=== PATIENT | female | born 1950 | race Caucasian/White ===

== ENCOUNTER 2021-02-06 11:25 | Day surgery (SDC) | payer MEDICARE, BC ==
[2021-02-01 13:15] LABS: BASOPHILS # (AUTO) 0.1 X10'3 (0-0.2); BASOPHILS % (AUTO) 1.3 % (0-1); EOSINOPHILS # (AUTO) 0.2 X10'3 (0-0.9); HEMATOCRIT 31.8 % (35.0-45.0); HEMOGLOBIN 10.4 g/dl (12.0-16.0); LYMPHOCYTES # (AUTO) 1.7 X10'3 (1.1-4.8); LYMPHOCYTES % (AUTO) 32.1 % (21-51); MEAN CORPUSCULAR HEMOGLOBIN 27.8 PG (27.0-31.0); MEAN CORPUSCULAR HGB CONC 32.6 g/dL (33.0-36.5); MEAN CORPUSCULAR VOLUME 85.3 FL (78-98); MEAN PLATELET VOLUME 9.1 FL (7.4-10.4); MONOCYTES # (AUTO) 0.6 X10'3 (0-0.9); MONOCYTES % (AUTO) 10.6 % (2-12); NEUTROPHILS # (AUTO) 2.8 X10'3 (1.8-7.7); PLATELET COUNT 247 X10'3 (140-440); RED BLOOD COUNT 3.73 X10'6 (4.20-5.60); RED CELL DISTRIBUTION WIDTH 15.5 % (11.5-14.5); WHITE BLOOD COUNT 5.3 X10'3 (4.5-11.0)
[2021-02-01 13:20] LABS: ALBUMIN 3.6 G/DL (3.4-5.0); ANION GAP 8 (8-16); BLOOD UREA NITROGEN 29 MG/DL (7-18); BUN/CREATININE RATIO 17.7 (6.6-38.0); CHLORIDE 103 MMOL/L (99-107); CREATININE 1.64 MG/DL (0.40-0.90); GLUCOSE 121 MG/DL (70-104); POTASSIUM 4.5 MMOL/L (3.5-5.1); SODIUM 139 MMOL/L (135-145); TOTAL CARBON DIOXIDE 27.7 MMOL/L (24-32); eGFR 31 ML/MIN
[2021-02-01 13:22] LABS: APTT 27 SECONDS (22-32)
[~2021-02-06] VITALS: Ht 162.6 cm; Wt 106.6 kg
[2021-02-06] VITALS (7 sets, daily range): BP systolic 107–121; BP diastolic 45–54
[~2021-02-06 11:25] MED LIST: ACET-896 PO; AMIO200T61 PO; ANAS1TAB10 PO; APIX5TAB3 PO; FURO-150 PO; GERITOL PO; LANS30CA56 PO; LEVO150T73 PO; LISI2.5T49 PO; MAGN300C PO; METF-1203 PO; METO50TA17 PO; MULT-342 PO; SIMV-42 PO; vitamin B12 PO
[2021-02-06] MEDS ORDERED: diphenhydrAMINE 25mg capsule PO PRN (11:45)
[2021-02-06] MEDS ORDERED: normal saline 1,000 ML IV SCH (11:45)
[2021-02-06] MEDS ORDERED: LORazepam 0.5 MG tablet PO PRN (11:45)
[2021-02-06] MEDS ORDERED: AMIO200T39 PO (12:06)
[2021-02-06] MEDS ORDERED: SACU1TAB PO (12:06)
[2021-02-06] MEDS ORDERED: LEVO100T PO (12:06)
[2021-02-06] MEDS ORDERED: ATOR20TA PO (12:07)
[2021-02-06] MEDS ORDERED: iron (12:08)
[2021-02-06] MEDS ORDERED: vitamin d3 (12:09)
[2021-02-06] MEDS ORDERED: RIVA15TA PO (12:10)
[2021-02-06] MEDS ORDERED: midazolam 1 mg/ML 2ml injection ONE (12:12)
[2021-02-06] MEDS ORDERED: nitroGLYCERIN-Tridil 50MG/D5W 250 ML IV ONE (12:12)
[2021-02-06] MEDS ORDERED: verapamil 2.5 mg/ml inj IV ONE (12:12)
[2021-02-06] MEDS ORDERED: POTA2TAB17 (12:13)
[2021-02-06] MEDS ORDERED: heparin 1,000unit/ml 10ml vial 10 ML ONE (12:13)
[2021-02-06] MEDS ORDERED: fentaNYL/PF 50MCG/1 ML 2ML syringe ONE (12:13)
[2021-02-06] MEDS ORDERED: iohexol 350MG/ML 100ml bottle IV ONE (12:13)
[2021-02-06] MEDS ORDERED: LIDOcaine 1% (10mg/ml)w/preservative injection 20ml MDV ONE (12:14)
[2021-02-06] MEDS ORDERED: ondansetron/PF 4mg/2ml inj IV PRN (13:45)
[2021-02-06] MEDS ORDERED: OXAZEpam 15mg capsule PO PRN (13:45)
[2021-02-06] MEDS ORDERED: proCHLORperazine 10 MG/2 ml inj IV PRN (13:45)
== END 2021-02-06 16:00 | disposition home or self-care (01) ==
LOC: SSTAY O 11:25
PROVIDERS: ATTEND Internal Medicine Interventional Cardiology
DX: I25.10 Atherosclerotic heart disease of native coronary artery without angina pectoris (principal); I42.9 Cardiomyopathy, unspecified; G47.33 Obstructive sleep apnea (adult) (pediatric); E11.22 Type 2 diabetes mellitus with diabetic chronic kidney disease; I13.0 Hypertensive heart and chronic kidney disease with heart failure and stage 1 through stage 4 chronic kidney disease, or unspecified chronic kidney disease; N18.9 Chronic kidney disease, unspecified; I50.9 Heart failure, unspecified; I48.0 Paroxysmal atrial fibrillation; I27.20 Pulmonary hypertension, unspecified; E03.9 Hypothyroidism, unspecified; D64.9 Anemia, unspecified; G25.0 Essential tremor; E78.5 Hyperlipidemia, unspecified; Z88.8 Allergy status to other drugs, medicaments and biological substances; Z85.3 Personal history of malignant neoplasm of breast; Z87.891 Personal history of nicotine dependence
CPT/HCPCS: 36415; 80048; 85025; 85610; 85730; 93005; 93458; 99152; C1769; C1894; J1644; J2250; J3010; J3490; J7030; Q9967; A4620; A5120

== ENCOUNTER 2021-09-29 21:43 | Emergency (ER) | payer MEDICARE, BC ==
[~2021-09-29] VITALS: Ht 162.6 cm; Wt 103.2 kg
[~2021-09-29 21:43] MED LIST changes: +AMIO200T39 PO; -AMIO200T61 PO; -ANAS1TAB10 PO; -APIX5TAB3 PO; +ATOR20TA PO; -GERITOL PO; +LEVO100T PO; -LEVO150T73 PO; -LISI2.5T49 PO; -METF-1203 PO; -MULT-342 PO; +POTA2TAB17; +RIVA15TA PO; +SACU1TAB PO; -SIMV-42 PO; +iron; +vitamin d3
[2021-09-29] MEDS ORDERED: morphine 4 MG/ML inj SYRINge IV ONE (22:30)
--- NOTE | 2021-09-29 22:30 | NUR ---
ASSUMED CARE OF PT. AWAKE AND ALERT. TACHYPNIC. C/O PAIN 12/03. WILL NOTIFIED
[2021-09-29 22:40] LABS: BASOPHILS # (AUTO) 0.1 X10'3 (0-0.2); BASOPHILS % (AUTO) 0.6 % (0-1); EOSINOPHILS # (AUTO) 0.3 X10'3 (0-0.9); EOSINOPHILS % (AUTO) 3.1 % (0-6); HEMATOCRIT 23.3 % (35.0-45.0); HEMOGLOBIN 7.5 g/dl (12.0-16.0); LYMPHOCYTES # (AUTO) 1.6 X10'3 (1.1-4.8); LYMPHOCYTES % (AUTO) 19.4 % (21-51); MEAN CORPUSCULAR VOLUME 84.2 FL (78-98); MEAN PLATELET VOLUME 9.1 FL (7.4-10.4); MONOCYTES # (AUTO) 1.1 X10'3 (0-0.9); MONOCYTES % (AUTO) 13.2 % (2-12); NEUTROPHILS # (AUTO) 5.2 X10'3 (1.8-7.7); NEUTROPHILS % (AUTO) 63.7 % (42-75); PLATELET COUNT 225 X10'3 (140-440); RED BLOOD COUNT 2.77 X10'6 (4.20-5.60); RED CELL DISTRIBUTION WIDTH 15.3 % (11.5-14.5); WHITE BLOOD COUNT 8.2 X10'3 (4.5-11.0)
[2021-09-29 22:50] LABS: ALANINE AMINOTRANSFERASE 12 U/L (12-78); ALBUMIN/GLOBULIN RATIO 0.7 (1.1-1.5); ALKALINE PHOSPHATASE 101 IU/L (46-116); ANION GAP 10 (8-16); BILIRUBIN,TOTAL 0.3 MG/DL (0.1-1.0); BLOOD UREA NITROGEN 49 MG/DL (7-18); BUN/CREATININE RATIO 24.1 (6.6-38.0); CALCIUM 8.7 MG/DL (8.5-10.1); CHLORIDE 106 MMOL/L (99-107); CREATININE 2.03 MG/DL (0.40-0.90); GLUCOSE 107 MG/DL (70-104); SODIUM 139 MMOL/L (135-145); TOTAL CARBON DIOXIDE 23.4 MMOL/L (24-32); TOTAL PROTEIN 7.2 G/DL (6.4-8.2); eGFR 24 ML/MIN
[2021-09-29 22:52] LABS: ASPARTATE AMINO TRANSFERASE 42 U/L (10-37); POTASSIUM 4.8 MMOL/L (3.5-5.1)
[2021-09-29] MEDS ORDERED: morphine 4 MG/ML inj SYRINge IM ONE (23:30)
--- NOTE | 2021-09-30 00:20 | NUR ---
ABBOT TECH AT BEDSIDE INERREGATING PACEMAKER.
[2021-09-30 01:36] VITALS: BP 143/77
== END 2021-09-30 01:38 | disposition home or self-care (01) ==
LOC: ER 21:44
DX: T82.847A Pain due to cardiac prosthetic devices, implants and grafts, initial encounter (principal); I97.190 Other postprocedural cardiac functional disturbances following cardiac surgery; R07.89 Other chest pain; Z87.891 Personal history of nicotine dependence; Z79.899 Other long term (current) drug therapy; Z88.8 Allergy status to other drugs, medicaments and biological substances; Y84.8 Other medical procedures as the cause of abnormal reaction of the patient, or of later complication, without mention of misadventure at the time of the procedure; Y71.3 Surgical instruments, materials and cardiovascular devices (including sutures) associated with adverse incidents; Y92.89 Other specified places as the place of occurrence of the external cause
CPT/HCPCS: 36415; 71045; 80053; 83880; 84484; 85025; 93005; 96372; 96374; 99285; J2270; 96375; A4615

== ENCOUNTER 2021-10-05 09:59 | Inpatient (IN) | payer MEDICARE, BC ==
[2021-10-05] VITALS (11 sets, daily range): BP systolic 101–147; BP diastolic 47–75
[~2021-10-05] VITALS: Ht 162.6 cm; Wt 100.7 kg
[2021-10-05] MEDS ORDERED: ceFAZolin inj. 2,000 MG in dextrose 5%-water 100 ML IV ONE (10:30)
[2021-10-05] MEDS ORDERED: PANT40TA54 PO (11:01)
[2021-10-05] MEDS ORDERED: LEVO112T5 PO (11:02)
[2021-10-05 11:20] LABS: BASOPHILS # (AUTO) 0.1 X10'3 (0-0.2); BASOPHILS % (AUTO) 1.4 % (0-1); EOSINOPHILS # (AUTO) 0.1 X10'3 (0-0.9); EOSINOPHILS % (AUTO) 2.2 % (0-6); HEMATOCRIT 23.4 % (35.0-45.0); HEMOGLOBIN 7.5 g/dl (12.0-16.0); LYMPHOCYTES # (AUTO) 1.5 X10'3 (1.1-4.8); LYMPHOCYTES % (AUTO) 28.7 % (21-51); MEAN CORPUSCULAR HEMOGLOBIN 26.1 PG (27.0-31.0); MEAN CORPUSCULAR HGB CONC 31.8 g/dL (33.0-36.5); MEAN CORPUSCULAR VOLUME 82.1 FL (78-98); MEAN PLATELET VOLUME 7.5 FL (7.4-10.4); MONOCYTES # (AUTO) 0.6 X10'3 (0-0.9); MONOCYTES % (AUTO) 11.6 % (2-12); NEUTROPHILS # (AUTO) 2.9 X10'3 (1.8-7.7); NEUTROPHILS % (AUTO) 56.1 % (42-75); PLATELET COUNT 322 X10'3 (140-440); RED BLOOD COUNT 2.85 X10'6 (4.20-5.60); RED CELL DISTRIBUTION WIDTH 14.4 % (11.5-14.5); WHITE BLOOD COUNT 5.1 X10'3 (4.5-11.0)
[2021-10-05 11:27] LABS: ALBUMIN 3.3 G/DL (3.4-5.0); ANION GAP 10 (8-16); BLOOD UREA NITROGEN 26 MG/DL (7-18); BUN/CREATININE RATIO 15.3 (6.6-38.0); CALCIUM 8.9 MG/DL (8.5-10.1); CHLORIDE 108 MMOL/L (99-107); GLUCOSE 94 MG/DL (70-104); MAGNESIUM 2.2 MG/DL (1.5-2.4); SODIUM 143 MMOL/L (135-145); TOTAL CARBON DIOXIDE 24.8 MMOL/L (24-32); eGFR 30 ML/MIN
[2021-10-05] MEDS ORDERED: CEPHALEXIN PO (11:56)
[2021-10-05] MEDS ORDERED: METO-411 PO (11:56)
[2021-10-05] MEDS ORDERED: MAGN200T PO (11:57)
[2021-10-05] MEDS ORDERED: HYDROcodone/acetaminophen 10/325mg tab PO ONE (12:25)
[2021-10-05] MEDS ORDERED: LIDOcaine 1% W/epiNEPHrine 1:100,000 20ml vial ONE (15:54)
[2021-10-05] MEDS ORDERED: midazolam 1 mg/ML 2ml injection ONE (15:54)
[2021-10-05] MEDS ORDERED: fentaNYL/PF 50MCG/1 ML 2ML syringe ONE (15:54)
[2021-10-05] MEDS ORDERED: ceFAZolin 1000mg inj ONE (15:54)
--- NOTE | 2021-10-05 16:20 | NUR ---
pts took pts glasses, cell phone and purse, all other belongings in bag under gurney.
--- NOTE | 2021-10-05 17:45 | NUR ---
In person report given to DMITRI Morales
--- NOTE | 2021-10-05 18:02 | NUR ---
Patient arrived to PCU 10 minutes before shift change. Patient alert, oriented and vitals are stable. Pacer site is [facility].
--- NOTE | 2021-10-05 18:38 | NUR ---
Problems reprioritized. Patient report given, questions answered & plan of care reviewed with Neisha RIZVI .
[2021-10-05] MEDS ORDERED: HYDROcodone/acetaminophen 5mg/325mg tablet PO PRN (18:45)
[2021-10-05] MEDS ORDERED: LORazepam 1 MG tablet PO PRN (18:45)
[2021-10-05] MEDS ORDERED: AMIO100T4 PO (19:09)
[2021-10-05] MEDS ORDERED: RIVA15TA PO (19:11)
[2021-10-05] MEDS ORDERED: CEPH500C2 PO (19:12)
[2021-10-05] MEDS ORDERED: acetaminophen 325mg tablet PO PRN (19:15)
[2021-10-05] MEDS: cephalexin 500mg capsule PO SCH (20:23)
[2021-10-05] MEDS: normal saline 1000ml 1,000 ML IV SCH (20:24)
[2021-10-05] MEDS ORDERED: atorvastatin 20mg tablet PO SCH (21:00)
[2021-10-05] MEDS: ceFAZolin/D5W- 1GM premix 50 ML IV SCH (23:54)
[2021-10-06] MEDS: HYDROcodone/acetaminophen 10/325mg tab PO PRN ×4 (01:42→15:43)
[2021-10-06 02:00] VITALS: BP 126/66
[2021-10-06] MEDS: normal saline 1000ml 1,000 ML IV SCH ×2 (04:45→14:45)
[2021-10-06 06:00] VITALS: BP 125/51
--- NOTE | 2021-10-06 06:58 | NUR ---
Report given to this RN at 1800 by Carmen. Post op vitals set up with off going RN. Pt had mostly uneventful shift. Pt did get several doses of Ellis. Dressing remains intact and left arm in sling. Fluids TKO now. Report given to Magui this am. Pt in no acute distress at time of handoff.
[2021-10-06] MEDS ORDERED: rivaroxaban 15mg tablet PO SCH (08:00)
[2021-10-06] MEDS ORDERED: amiodarone 100mg tablet PO SCH (08:00)
[2021-10-06] MEDS ORDERED: furosemide 40mg tablet PO SCH (08:00)
[2021-10-06] MEDS ORDERED: levoTHYROXINE 112mcg tablet PO SCH (08:00)
[2021-10-06] MEDS ORDERED: metoprolol succinate 25mg (24-HOUR) SR. Tablet PO SCH (08:00)
[2021-10-06] MEDS ORDERED: pantoprazole 40mg Tablet.DR PO SCH (08:00)
[2021-10-06] MEDS: ceFAZolin/D5W- 1GM premix 50 ML IV SCH (08:13)
[2021-10-06] MEDS: cephalexin 500mg capsule PO SCH (08:13)
--- NOTE | 2021-10-06 08:20 | NUR ---
Pt's IV infiltrated moments into dose of ABX, infusion stopped. Pt refuses new IV start despite being informed of reason for antibiotics still declined. IV dc'd intact.
[2021-10-06 11:00] VITALS: BP 115/73
--- NOTE | 2021-10-06 16:02 | NUR ---
spoke with Dr Bj Freeman about pt desire to DC. Was give DC order but pt requesting Jesse 10 for DC. Called service for page out.
[2021-10-06] MEDS ORDERED: magnesium oxide 400mg tablet PO SCH (21:00)
--- NOTE | 2021-10-09 13:57 | NUR ---
Case Management DC follow up: Left VM with name , telephone number, and reason for call.
== END 2021-10-06 17:50 | disposition home or self-care (01) | DRG 261 ==
LOC: SSTAY O 09:59 → PCU 3S 17:57
PROVIDERS: ADMIT Internal Medicine Interventional Cardiology; ATTEND Internal Medicine Interventional Cardiology
PROC: 02WA3MZ Revision of Cardiac Lead in Heart, Percutaneous Approach (ICD-10-PCS; principal; 2021-10-05)
DX: T82.120A Displacement of cardiac electrode, initial encounter (principal); I13.0 Hypertensive heart and chronic kidney disease with heart failure and stage 1 through stage 4 chronic kidney disease, or unspecified chronic kidney disease; I48.91 Unspecified atrial fibrillation; I50.9 Heart failure, unspecified; G47.33 Obstructive sleep apnea (adult) (pediatric); Y83.8 Other surgical procedures as the cause of abnormal reaction of the patient, or of later complication, without mention of misadventure at the time of the procedure; E11.22 Type 2 diabetes mellitus with diabetic chronic kidney disease; N18.9 Chronic kidney disease, unspecified; I25.10 Atherosclerotic heart disease of native coronary artery without angina pectoris; Y92.89 Other specified places as the place of occurrence of the external cause
CPT/HCPCS: 33215; 36415; 71045; 80048; 83735; 85025; 85610; 93005; 93308; 99152; 99153; A4565; A6258; A6449; G0378; J0690; J2250; J3010; J3490; J7030

== ENCOUNTER → 2022-03-28 | Outpatient (CLI) | payer MEDICARE, BC ==
[~2022-03-28] MED LIST changes: +AMIO100T4 PO; -AMIO200T39 PO; +CEPH500C2 PO; -LANS30CA56 PO; -LEVO100T PO; +LEVO112T5 PO; +MAGN200T PO; -MAGN300C PO; +METO-411 PO; -METO50TA17 PO; +PANT40TA54 PO; -POTA2TAB17; -SACU1TAB PO; +iohexol 350MG/ML 100ml bottle IV ONE; -iron; -vitamin B12 PO; -vitamin d3
[2022-03-28 10:13] LABS: BASOPHILS # (AUTO) 0.1 X10'3 (0-0.2); BASOPHILS % (AUTO) 1.8 % (0-1); EOSINOPHILS # (AUTO) 0.2 X10'3 (0-0.9); EOSINOPHILS % (AUTO) 2.9 % (0-6); HEMATOCRIT 33.1 % (35.0-45.0); HEMOGLOBIN 10.4 g/dl (12.0-16.0); LYMPHOCYTES # (AUTO) 1.4 X10'3 (1.1-4.8); LYMPHOCYTES % (AUTO) 23.2 % (21-51); MEAN CORPUSCULAR HEMOGLOBIN 25.4 PG (27.0-31.0); MEAN CORPUSCULAR HGB CONC 31.3 g/dL (33.0-36.5); MEAN CORPUSCULAR VOLUME 81.2 FL (78-98); MEAN PLATELET VOLUME 8.7 FL (7.4-10.4); MONOCYTES # (AUTO) 0.7 X10'3 (0-0.9); MONOCYTES % (AUTO) 11.5 % (2-12); NEUTROPHILS # (AUTO) 3.6 X10'3 (1.8-7.7); NEUTROPHILS % (AUTO) 60.6 % (42-75); PLATELET COUNT 253 X10'3 (140-440); RED BLOOD COUNT 4.08 X10'6 (4.20-5.60); RED CELL DISTRIBUTION WIDTH 14.5 % (11.5-14.5)
[2022-03-28 10:23] LABS: ALBUMIN 3.6 G/DL (3.4-5.0); ANION GAP 6 (8-16); BLOOD UREA NITROGEN 38 MG/DL (7-18); CALCIUM 9.5 MG/DL (8.5-10.1); CHLORIDE 102 MMOL/L (99-107); GLUCOSE 104 MG/DL (70-104); POTASSIUM 4.3 MMOL/L (3.5-5.1); SODIUM 138 MMOL/L (135-145); TOTAL CARBON DIOXIDE 30.5 MMOL/L (24-32); eGFR 26 ML/MIN
== END | disposition home or self-care (01) ==
LOC: RAD 09:22
PROVIDERS: ATTEND Internal Medicine Cardiovascular Disease
DX: K76.0 Fatty (change of) liver, not elsewhere classified (principal); I48.91 Unspecified atrial fibrillation; I70.0 Atherosclerosis of aorta; J98.4 Other disorders of lung; K44.9 Diaphragmatic hernia without obstruction or gangrene; Z90.49 Acquired absence of other specified parts of digestive tract
CPT/HCPCS: 36415; 75574; 80048; 85025; J3490; Q9967

== ENCOUNTER 2022-05-28 11:02 | Outpatient (CLI) | payer MEDICARE, BC ==
[2022-05-15 11:33] LABS: BLOOD UREA NITROGEN 24 MG/DL (7-18); BUN/CREATININE RATIO 13.7 (10.0-20.0); CHLORIDE 104 MMOL/L (99-107); CREATININE 1.75 MG/DL (0.40-0.90); GLUCOSE 117 MG/DL (70-104); POTASSIUM 4.2 MMOL/L (3.5-5.1); SODIUM 142 MMOL/L (135-145); eGFR 28 ML/MIN
[2022-05-15 11:39] LABS: ALBUMIN 3.7 G/DL (3.4-5.0); ANION GAP 5 (8-16); CALCIUM 9.6 MG/DL (8.5-10.1); TOTAL CARBON DIOXIDE 32.9 MMOL/L (24-32)
[~2022-05-28 11:02] MED LIST changes: -iohexol 350MG/ML 100ml bottle IV ONE
[2022-05-28] MEDS ORDERED: IODIXANOL 320 MG/ML INFUS..BTL 100ML IV ONE (12:07)
== END 2022-05-28 23:59 | disposition home or self-care (01) ==
LOC: RAD 11:02
PROVIDERS: ATTEND Nurse Practitioner Adult Health
DX: K76.0 Fatty (change of) liver, not elsewhere classified (principal); K44.9 Diaphragmatic hernia without obstruction or gangrene; J98.4 Other disorders of lung; N18.9 Chronic kidney disease, unspecified; Z90.49 Acquired absence of other specified parts of digestive tract; Z95.818 Presence of other cardiac implants and grafts
CPT/HCPCS: 36415; 75572; 80048; J3490; Q9967